=== PATIENT | male | born 1955 | race Caucasian/White ===

== ENCOUNTER → 2020-10-04 12:58 | Outpatient (BNVA) | payer MEDICARE, SELFPAY | PROVIDERS: PCP Internal Medicine; Visit Provider Internal Medicine Pulmonary Disease | DX: J61 Pneumoconiosis due to asbestos and other mineral fibers (principal); J84.9 Interstitial pulmonary disease, unspecified | CPT/HCPCS: 99202 ==

== ENCOUNTER 2020-10-10 13:38 | Outpatient (REF) | payer MEDICARE, SELFPAY ==
--- NOTE | 2020-10-10 17:03 | PFT_ITS ---
INDICATION: Pneumoconiosis. SPIROMETRY: The FEV1 to FVC 77% with an FEV1 of 2.77 L, which is 112% predicted and an FVC of 4.92 L, which is 108% predicted. No significant response to bronchodilators noted. Maximum voluntary ventilation 120% predicted. LUNG VOLUMES: Total lung capacity 94% predicted. DIFFUSION CAPACITY: DLCO 65% predicted. COMPARISONS: None. INTERPRETATION: No obstructive nor restrictive ventilatory defects identified. No significant response to bronchodilators noted and normal maximum voluntary ventilation. Lung volumes are within normal limits. The patient does have a mild isolated diffusion impairment. Please correct for hemoglobin. This could correspond to an occult parenchymal lung condition and/or a pulmonary vascular condition. Clinical correlation warranted. Ashutosh Viera MD MR/MODL / [id number]
== END 2020-10-10 13:39 | disposition home or self-care (01) ==
LOC: HO.RESP 13:38
PROVIDERS: PCP Internal Medicine; Visit Provider Internal Medicine Pulmonary Disease
DX: J61 Pneumoconiosis due to asbestos and other mineral fibers (principal)
CPT/HCPCS: 94060; 94727; 94729

== ENCOUNTER → 2021-03-27 12:47 | Outpatient (BNVA) | payer MEDICARE, SELFPAY | PROVIDERS: PCP Internal Medicine; Visit Provider Internal Medicine Pulmonary Disease | DX: J61 Pneumoconiosis due to asbestos and other mineral fibers (principal) | CPT/HCPCS: 99212 ==

== ENCOUNTER 2021-09-02 14:18 | Outpatient (REF) | payer MEDICARE, SELFPAY ==
--- NOTE | ~2021-09-02 | CT_ITS ---
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 COMPARISON: No previous. TECHNIQUE: Multidetector volumetric CT imaging of the chest was done. Axial MIP volume rendering provided. Sagittal and coronal reformatted images were obtained. This CT examination was performed using dose optimization techniques as appropriate, variously including the following: *Automated exposure control *Adjustment of mA and/or kV according to patient size (this includes techniques or standardized protocols for targeted exams where dose is matched to indication/reason for exam; i.e. 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 LUNGS: There is mild centrilobular emphysema with subpleural reticular interstitial prominence throughout the upper and lower lobes. There are no pulmonary nodules, mass and consolidation. There is a subpleural-based calcified 3 mm nodule in the lingula axial image 251/6. MEDIASTINUM: The thyroid lobes are symmetric and normal. The central trachea and the bronchi are widely patent. The heart size and the great vessels are normal caliber. No abnormal sized mediastinal or hilar lymph nodes seen. Trace right pericardial effusion seen. There are coronary artery calcifications present. PLEURA: There are punctate scattered pleural calcifications. In addition, there is plaque-like calcification in the left upper lobe posterior pleural surface. This is most suggestive of asbestosis exposure. AXILLA: There are small shotty lymph nodes in the axillae. The chest wall is unremarkable. UPPER ABDOMEN: The visualized liver, spleen and adrenal glands are unremarkable. There are gallstones. OSSEOUS STRUCTURES: Mild degenerative disc changes and vacuum disc phenomena is noted. There is no ventral spondylosis. No lytic or sclerotic process seen. CT/CT chest wo con IMPRESSION: Hyperinflated lungs, likely emphysema with subpleural reticular stranding and thickening of the interstitium suggestive of early mild chronic interstitial disease. In addition, there are pleural calcifications from asbestosis exposure. No abnormal lymphadenopathy. Mild coronary artery calcifications present.
== END 2021-09-02 14:19 | disposition home or self-care (01) ==
LOC: HO.CT 14:18
PROVIDERS: PCP Family Medicine; Visit Provider Internal Medicine Pulmonary Disease
DX: J61 Pneumoconiosis due to asbestos and other mineral fibers (principal)
CPT/HCPCS: 71250

== ENCOUNTER → 2022-11-05 15:08 | Outpatient (BNVA) | payer MEDICARE, SELFPAY | PROVIDERS: PCP Family Medicine; Visit Provider Internal Medicine Pulmonary Disease | DX: J61 Pneumoconiosis due to asbestos and other mineral fibers (principal); J84.9 Interstitial pulmonary disease, unspecified | CPT/HCPCS: 99212 ==

== ENCOUNTER 2022-11-18 15:04 | Outpatient (REF) | payer MEDICARE, SELFPAY ==
--- NOTE | ~2022-11-18 | CT_ITS ---
EXAMINATION: CT CHEST WITHOUT CONTRAST CLINICAL INFORMATION: Interstitial pulmonary edema. COMPARISON: CT chest 09/02/2021. TECHNIQUE: Multidetector volumetric CT imaging of the chest was done. Axial MIP volume rendering provided. Sagittal and coronal reformatted images were obtained. This CT examination was performed using dose optimization techniques as appropriate, variously including the following: *Automated exposure control *Adjustment of mA and/or kV according to patient size (this includes techniques or standardized protocols for targeted exams where dose is matched to indication/reason for exam; i.e. 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 LUNGS: There are mild emphysematous changes of the lungs with subpleural reticular interstitial prominence in both upper lobes. There is ground-glass opacity right upper lobe medially axial image 59/10, stable. There are 2-3 mm calcified granulomas in the right upper and both lower lobes. No noncalcified pulmonary nodules visualized. There is no acute consolidation. MEDIASTINUM: Thyroid lobes are symmetrical and normal. The central trachea and bronchi are widely patent. Heart size and great vessels are normal caliber. There is no pericardial effusion. No abnormal sized mediastinal or hilar lymphadenopathy seen. CORONARY ARTERY CALCIFICATION: Moderate coronary artery calcifications are present. PLEURA: There is no pleural effusion, thickening or calcification. AXILLA: Small shotty lymph nodes are seen in the axilla. UPPER ABDOMEN: The visualized liver, spleen, pancreas, and bilateral adrenal glands are unremarkable. OSSEOUS STRUCTURES: No aggressive lytic or sclerotic process seen. There is mild ventral spondylosis mid dorsal spine. CT/CT chest wo IV con IMPRESSION: 1. Stable ground-glass opacity right upper lobe medially. No new nodules seen. 2. No abnormal mediastinal or axillary lymphadenopathy seen. 3. Moderate coronary artery calcifications are present. Fleischner guidelines were followed.
== END 2022-11-18 15:05 | disposition home or self-care (01) ==
LOC: HO.CT 15:04
PROVIDERS: PCP Family Medicine; Visit Provider Internal Medicine Pulmonary Disease
DX: J84.9 Interstitial pulmonary disease, unspecified (principal)
CPT/HCPCS: 71250

== ENCOUNTER → 2022-11-24 12:41 | Outpatient (REF) | payer MEDICARE, SELFPAY | LOC: HO.SL 12:41 | PROVIDERS: PCP Family Medicine; Visit Provider Internal Medicine Pulmonary Disease | DX: G47.33 Obstructive sleep apnea (adult) (pediatric) (principal) | CPT/HCPCS: 95806 ==

== ENCOUNTER → 2023-01-26 13:26 | Outpatient (BNVA) | payer MEDICARE, SELFPAY | PROVIDERS: PCP Family Medicine; Visit Provider Internal Medicine Pulmonary Disease | DX: J84.9 Interstitial pulmonary disease, unspecified (principal); J61 Pneumoconiosis due to asbestos and other mineral fibers | CPT/HCPCS: 99212 ==

== ENCOUNTER 2023-03-08 12:09 | Outpatient (REF) | payer MEDICARE, SELFPAY ==
--- NOTE | 2023-03-08 13:20 | PFT_ITS ---
INDICATION: Pneumoconiosis and interstitial lung disease. SPIROMETRY: FEV1 to FVC of 74% with an FEV1 of 2.4 L, which is 104% predicted. FVC of 4.56 L, which is 102% predicted. No significant response to bronchodilators noted. Maximum voluntary ventilation 84% predicted. LUNG VOLUMES: Total lung capacity 86% predicted with expiratory reserve volume of 36% predicted likely secondary to elevated BMI. DIFFUSION CAPACITY: DLCO of 66% predicted. COMPARISON: None. INTERPRETATION: No obstructive nor restrictive ventilatory defects. No significant response to bronchodilator is noted. Normal maximum voluntary ventilation. Lung volumes are normal, except for a decrease in the expiratory reserve volume likely secondary to an elevated BMI. However, the patient does have a mild isolated effusion impairment. Need to consider occult interstitial lung conditions due to the initial diagnosis. Could also assess for pulmonary vascular conditions and should also correct for anemia. Clinical correlation warranted. Ashutosh Viera MD MR/MODL / [id number]
== END 2023-03-08 12:10 | disposition home or self-care (01) ==
LOC: HO.RESP 12:09
PROVIDERS: PCP Family Medicine; Visit Provider Internal Medicine Pulmonary Disease
DX: J84.9 Interstitial pulmonary disease, unspecified (principal)
CPT/HCPCS: 94060; 94727; 94729